=== PATIENT | male | born 1945 | race Caucasian/White ===

== ENCOUNTER 2016-10-07 08:43 | Inpatient (IN) | payer MEDICARE, MEDICAID ==
[~2016-10-07] VITALS: Ht 180.3 cm; Wt 81.5 kg
[~2016-10-07 08:43] MED LIST: BACITRACIN 50,000 UNIT ONE; BACITRACIN OINT 500U/GM, 15 GM ONE; BUPIVACAINE/PF-EPI 0.5% 1:200K ONE; THROMBIN 20,000 UNIT VIAL TP ONE
[2016-10-07] MEDS ORDERED: LIDOCAINE 1%, 2ML SQ PRN (09:30)
[2016-10-07] MEDS ORDERED: LACTATED RINGERS 1,000 ML IV SCH (09:30)
[2016-10-07] MEDS ORDERED: LIDOCAINE 1%, 2ML ONE (09:33)
[2016-10-07] MEDS ORDERED: METH750T2 PO (10:12)
[2016-10-07] MEDS ORDERED: [UNRECOGNIZED DRUG - OTHER] PO (10:12)
[2016-10-07] MEDS ORDERED: MINE25OI PO (10:12)
[2016-10-07] MEDS ORDERED: OXYC-302 PO (10:12)
[2016-10-07] MEDS ORDERED: SUCCINYLCHOLINE 20 MG/ML, 10ML ONE (12:03)
[2016-10-07] MEDS ORDERED: DEXAMETHASONE 4 MG/ML, 1ML ONE (12:03)
[2016-10-07] MEDS ORDERED: CEFAZOLIN 1,000 MG ONE (12:03)
[2016-10-07] MEDS ORDERED: ROCURONIUM 10 MG/ML ONE (12:03)
[2016-10-07] MEDS ORDERED: PROPOFOL 10 MG/ML, 50ML ONE (12:03)
[2016-10-07] MEDS ORDERED: PROPOFOL 10 MG/ML, 20ML ONE (12:03)
[2016-10-07] MEDS ORDERED: ONDANSETRON 2MG/ML, 2ML ONE (12:03)
[2016-10-07] MEDS ORDERED: METOCLOPRAMIDE 5 MG/ML, 2ML ONE (12:03)
[2016-10-07] MEDS ORDERED: KETAMINE 10 MG/ML, 20ML ONE (12:05)
[2016-10-07] MEDS ORDERED: FENTANYL PF 250 MCG/5ML ONE (12:05)
[2016-10-07] MEDS ORDERED: HYDROmorphone 1 MG/ML, 1ML IV PRN (13:00)
[2016-10-07] MEDS ORDERED: hydrALAzine 20 MG/ML, 1ML IV PRN (13:00)
[2016-10-07] MEDS ORDERED: MEPERIDINE/PF 25MG/0.5ML IVPush PRN (13:00)
[2016-10-07] MEDS ORDERED: MIDAZOLAM 1 MG/ML, 2ML IV PRN (13:00)
[2016-10-07] MEDS ORDERED: PROMETHAZINE 25 MG/ML, 1ML IV PRN (13:00)
[2016-10-07] MEDS ORDERED: ONDANSETRON 2MG/ML, 2ML IVPush PRN (13:00)
[2016-10-07] MEDS ORDERED: LABETALOL 5MG/ML, 20ML IV PRN (13:00)
[2016-10-07] MEDS ORDERED: OXYcodone 5 MG/5 ML ORAL.SOL UDC PO PRN (13:00)
[2016-10-07] MEDS ORDERED: BUPIVACAINE/PF-EPI 0.5% 1:200K ONE (13:18)
[2016-10-07] MEDS ORDERED: FENTANYL PF 100 MCG/2ML ONE (14:40)
[2016-10-07] MEDS ORDERED: HYDROmorphone 2 MG/ML, 1ML ONE (14:40)
[2016-10-07] MEDS ORDERED: OXYcodone 5 MG/5 ML ORAL.SOL UDC ONE (14:41)
[2016-10-07] MEDS: FENTANYL PF 100 MCG/2ML IV PRN ×2 (14:45→14:53)
[2016-10-07] MEDS ORDERED: METHOCARBAMOL 1,000 MG in DEXTROSE 5% 100 ML IV ONE (15:00)
[2016-10-07] MEDS ORDERED: METHOCARBAMOL 1000MG/10 ML IVPB ONE (15:00)
[2016-10-07] MEDS ORDERED: MORPHINE SULFATE 4 MG/ML, 1ML ONE (15:45)
[2016-10-07] MEDS ORDERED: PROMETHAZINE 25 MG/ML, 1ML IM PRN (16:00)
[2016-10-07] MEDS ORDERED: MAGNESIUM HYDROXIDE 8%, 30ML UDC PO PRN (16:00)
[2016-10-07] MEDS ORDERED: BISACODYL 10 MG SUPP PR PRN (16:00)
[2016-10-07] MEDS ORDERED: HYDROcodone/APAP 5/325 TABLET PO PRN (16:00)
[2016-10-07] MEDS ORDERED: DIPHENHYDRAMINE 50 MG/ML, 1ML IM PRN (16:00)
[2016-10-07] MEDS ORDERED: DIPHENHYDRAMINE 50 MG CAPSULE PO PRN (16:00)
[2016-10-07] MEDS ORDERED: ONDANSETRON 2MG/ML, 2ML IV PRN (16:00)
[2016-10-07] MEDS ORDERED: OXYcodone/APAP 5/325MG TABLET PO PRN (16:00)
[2016-10-07] MEDS: D5%-0.9% NACL+KCL 20MEQ 1,000 ML IV SCH (16:53)
[2016-10-07 19:08] VITALS: BP 114/75
[2016-10-07] MEDS: CEFAZOLIN PMX 1GM/50ML 50 ML IVPB SCH (20:46)
[2016-10-07] MEDS: morphine SULFATE 10 MG/ML, 1ML IV PRN (21:57)
[2016-10-07] MEDS ORDERED: METHOCARBAMOL 750 MG TABLET PO PRN (23:00)
[2016-10-08 00:30] VITALS: BP 94/57
[2016-10-08] MEDS: CEFAZOLIN PMX 1GM/50ML 50 ML IVPB SCH (03:56)
[2016-10-08 04:06] VITALS: BP 97/61
[2016-10-08] MEDS: D5%-0.9% NACL+KCL 20MEQ 1,000 ML IV SCH ×2 (05:41→14:30)
[2016-10-08] MEDS: morphine SULFATE 10 MG/ML, 1ML IV PRN (05:46)
[2016-10-08 07:00] VITALS: BP 91/48
[2016-10-08] MEDS: SENNA/DOCUSATE TABLET PO SCH ×2 (09:00→11:00)
[2016-10-08] MEDS: OXYcodone IR 5MG TABLET PO PRN ×4 (09:44→22:39)
[2016-10-08] MEDS ORDERED: PRUNELAX PO PRN (10:30)
[2016-10-08 13:13] VITALS: BP 96/60
[2016-10-08] MEDS ORDERED: SODIUM CHLORIDE 0.9% 1,000 ML IV SCH (14:30)
[2016-10-08 19:07] VITALS: BP 105/54
[2016-10-09] MEDS: D5%-0.9% NACL+KCL 20MEQ 1,000 ML IV SCH ×2 (02:33→12:55)
[2016-10-09 02:59] VITALS: BP 107/64
[2016-10-09 06:44] VITALS: BP 117/67
[2016-10-09] MEDS: OXYcodone IR 5MG TABLET PO PRN ×4 (07:24→20:30)
[2016-10-09] MEDS ORDERED: BISACODYL 10 MG SUPP PR PRN (11:30)
[2016-10-09 13:03] VITALS: BP 104/62
[2016-10-09 19:27] VITALS: BP 113/65
[2016-10-10 00:57] VITALS: BP 105/64
[2016-10-10] MEDS: D5%-0.9% NACL+KCL 20MEQ 1,000 ML IV SCH ×2 (02:39→10:28)
[2016-10-10] MEDS: OXYcodone IR 5MG TABLET PO PRN ×4 (06:12→18:41)
[2016-10-10 07:10] VITALS: BP 107/65
[2016-10-10] MEDS: SENNA/DOCUSATE TABLET PO SCH (09:39)
[2016-10-10 11:41] LABS: HEMOGLOBIN 12.4 g/dL (13.7-18.0)
[2016-10-10] MEDS: OMEPRAZOLE 20 MG CAPSULE.DR PO SCH (12:49)
[2016-10-10] MEDS: ALUMINUM/MAG/SIMETHICONE 30 ML UDC PO PRN ×2 (12:49→21:17)
[2016-10-10 14:03] VITALS: BP 98/58
[2016-10-10 14:42] LABS: HEMOGLOBIN 13.6 g/dL (13.7-18.0)
[2016-10-10 18:31] VITALS: BP 106/65
[2016-10-11] MEDS: ZOLPIDEM 5MG TABLET PO PRN ×2 (00:05→23:43)
[2016-10-11] MEDS: D5%-0.9% NACL+KCL 20MEQ 1,000 ML IV SCH ×3 (00:16→19:23)
[2016-10-11 00:40] VITALS: BP 94/61
[2016-10-11 07:30] VITALS: BP 106/64
[2016-10-11] MEDS: OXYcodone IR 5MG TABLET PO PRN ×4 (09:00→21:37)
[2016-10-11] MEDS: SENNA/DOCUSATE TABLET PO SCH (09:00)
[2016-10-11] MEDS: OMEPRAZOLE 20 MG CAPSULE.DR PO SCH (09:00)
[2016-10-11 12:36] VITALS: BP 101/64
[2016-10-11] MEDS: ALUMINUM/MAG/SIMETHICONE 30 ML UDC PO PRN (17:36)
[2016-10-11 21:25] VITALS: BP 112/54
[2016-10-12 04:43] VITALS: BP 105/60
[2016-10-12 07:09] VITALS: BP 118/74
[2016-10-12] MEDS: OXYcodone IR 5MG TABLET PO PRN ×2 (07:32→12:12)
[2016-10-12] MEDS: OMEPRAZOLE 20 MG CAPSULE.DR PO SCH (07:34)
[2016-10-12] MEDS ORDERED: OXYC5TAB3 PO (09:20)
[2016-10-12] MEDS ORDERED: OMEP20TA62 PO (09:22)
[2016-10-12] MEDS ORDERED: SENN1TAB7 PO (09:24)
[2016-10-12] MEDS ORDERED: Maalox PO (09:26)
[2016-10-12] MEDS ORDERED: BISA10SU54 PR (09:27)
[2016-10-12] MEDS ORDERED: Milk of Magnesia PO (09:29)
[2016-10-12] MEDS: SENNA/DOCUSATE TABLET PO SCH (10:24)
== END 2016-10-12 14:22 | DRG 517 ==
LOC: ORIP 08:43 → 4NOR 15:33
PROVIDERS: ADMIT Neurological Surgery; ATTEND Neurological Surgery
PROC: 01NB0ZZ Release Lumbar Nerve, Open Approach (ICD-10-PCS; principal; 2016-10-07 11:00)
DX: M48.06 Spinal stenosis, lumbar region (principal); M51.26 Other intervertebral disc displacement, lumbar region; M51.16 Intervertebral disc disorders with radiculopathy, lumbar region; M48.07 Spinal stenosis, lumbosacral region; M25.551 Pain in right hip; M25.552 Pain in left hip
CPT/HCPCS: 36415; 71010; 72100; 85025; 86850; 86900; 93005; J0690; J1100; J2405; J2704; J3010; J3490; J0330; J2270; J2765; J2800; J3480; J7120